=== PATIENT | male | born 1990 | race Hispanic/Latino ===

== ENCOUNTER 2017-06-27 00:16 | Observation (INO) | payer OTHER ==
[~2017-06-27] VITALS: Ht 167.6 cm; Wt 105.2 kg
[2017-06-27] MEDS ORDERED: SODIUM CHLORIDE 0.9% 1000ML 1,000 ML IV STA (00:34)
[2017-06-27 00:51] LABS: BASOPHILS # (AUTO) 0.1 (0.0-0.1); BASOPHILS % 0.6 % (0.0-1.0); EOSINOPHILS # (AUTO) 0.2 (0.0-0.4); EOSINOPHILS % 1.5 % (0.0-6.0); HEMATOCRIT 49.4 % (38.2-49.6); HEMOGLOBIN 16.7 g/dL (14.0-18.0); LYMPHOCYTES # (AUTO) 4.3 (1.0-3.2); MEAN CORPUSCULAR HEMOGLOBIN 25.8 pg (28-32); MEAN CORPUSCULAR HGB CONC 33.8 g/dL (31-35); MEAN CORPUSCULAR VOLUME 76.2 fL (81-99); MONOCYTES # (AUTO) 0.9 (0.2-0.8); MONOCYTES % 6.6 % (4.4-11.3); NEUTROPHILS # (AUTO) 7.9 (2.1-6.9); PLATELET COUNT 283 x10e3/uL (140-360); RED BLOOD COUNT 6.48 x10e6/uL (4.3-5.7); RED CELL DISTRIBUTION WIDTH 13.2 % (11.7-14.4)
--- NOTE | 2017-06-27 01:00 | Diagnostic Imaging Report ---
EXAMINATION: CHEST 2 VIEWS INDICATION: Chest pain. COMPARISON: None FINDINGS: TUBES and LINES: None. LUNGS: Lungs are not well inflated. Lungs are clear. There is no evidence of pneumonia or pulmonary edema. PLEURA: No pleural effusion or pneumothorax. HEART AND MEDIASTINUM: The cardiomediastinal silhouette is unremarkable. BONES AND SOFT TISSUES: No acute osseous lesion. Soft tissues are unremarkable. UPPER ABDOMEN: No free air under the diaphragm. IMPRESSION: No acute thoracic abnormality. Signed by: Dr. Fermín Morales M.D. on 06/27/2017 12:56 AM
[2017-06-27 01:01] LABS: INR 0.98; PROTHROMBIN TIME 12.2 seconds (11.9-14.5)
[2017-06-27 01:02] LABS: PARTIAL THROMBOPLASTIN TIME 31.4 seconds (23.8-35.5)
[2017-06-27 01:11] LABS: ALANINE AMINOTRANSFERASE 19 IU/L (0-55); ALBUMIN 3.9 g/dL (3.5-5.0); ALKALINE PHOSPHATASE 126 IU/L (40-150); ANION GAP 15.6 mmol/L (8-16); BLOOD UREA NITROGEN 19 mg/dL (7-26); BUN/CREATININE RATIO 17 (6-25); CALCIUM 9.1 mg/dL (8.4-10.2); CARBON DIOXIDE 24 mmol/L (22-29); CHLORIDE 102 mmol/L (98-107); CREATINE KINASE 186 IU/L (30-200); CREATININE, SERUM 1.14 mg/dL (0.72-1.25); EST GLOMERULAR FILTRATION RATE > 60 ML/MIN (60-); GLUCOSE 102 mg/dL (74-118); MAGNESIUM 2.4 MG/DL (1.3-2.1); POTASSIUM 3.6 mmol/L (3.5-5.1); SODIUM 138 mmol/L (136-145)
[2017-06-27 01:24] LABS: BILIRUBIN,URINE NEGATIVE (NEGATIVE); KETONES,URINE NEGATIVE (NEGATIVE); LEUKOCYTE ESTERASE ,URINE NEGATIVE (NEGATIVE); NITRITE,URINE NEGATIVE (NEGATIVE); PROTEIN,URINE DIPSTICK NEGATIVE (NEGATIVE); URINE UROBILINOGEN 4 mg/dL (0.2 - 1)
[2017-06-27 01:25] LABS: CLARITY,URINE CLEAR (CLEAR); COLOR,URINE YELLOW (YELLOW)
[2017-06-27 01:28] LABS: STREPTOCOCCUS GRP A ANTIGEN NEGATIVE (NEGATIVE)
[2017-06-27 01:30] LABS: AMPHETAMINES SCREEN,URINE NEGATIVE (NEGATIVE); BENZODIAZEPINES SCREEN,URINE NEGATIVE (NEGATIVE); PHENCYCLIDINE SCREEN,URINE NEGATIVE (NEGATIVE)
[2017-06-27 01:35] LABS: BACTERIA,URINE RARE /HPF; EPITHELIAL CELLS,URINE RARE /LPF; WBC,URINE (MAN) 0-5 /HPF (0-5)
[2017-06-27 01:44] LABS: INFLUENZAE A&B ANTIGEN (RAPID) NEGATIVE (NEGATIVE)
[2017-06-27] MEDS ORDERED: ONDANSETRON HCL INJ 2 MG/ML VIAL IV PRN (04:15)
--- OUTSIDE RECORDS SUMMARY | 2017-06-27 04:24 | XMS REPORT ---
[facility] Address Unknown Phone Unavailable Care Team Providers Care Car Coupler Name Role Phone LYDIA VASQUES Unavailable Unavailable Problems This patient has no known problems. Allergies, Adverse Reactions, Alerts This patient has no known allergies or adverse reactions. Medications This patient has no known medications. Results Test Description Test Time Test Comments Text Results Atomic Results Result Comments CHEST [address] [address] Patient Name: NAOMI HWANG III MR #: [id number] : 1990 Age/Sex: 27/M Req #: [id number] Adm Physician: Ordered by: LYDIA VASQUES MD Report #: [id number] Location: ER Room/Bed: Procedure: [id number] DX/CHEST 2 VIEWS Exam Date: 06/27/17 Exam Time : 0 REPORT STATUS: Signed EXAMINATION: CHEST 2 VIEWS INDICATION: Chest pain. COMPARISON: None FINDINGS: TUBES and LINES: None. LUNGS: Lungs are not well inflated. Lungs are clear. There is no evidence of pneumonia or pulmonary edema. PLEURA: No pleural effusion or pneumothorax. HEART AND MEDIASTINUM: The cardiomediastinal silhouette is unremarkable. BONES AND SOFT TISSUES: No acute osseous lesion. Soft tissues are unremarkable. UPPER ABDOMEN: No free air under the diaphragm. IMPRESSION: No acute thoracic abnormality. Signed by: Dr. Fermín Morales M.D. on 06/27/2017 12:56 AM Dictated By: FERMÍN MARS MD Transcribed By: JARAD on 06/27/1755 COPY TO: LYDIA VASQUES MD
[2017-06-27 07:38] LABS: CHOL/HDL RATIO 4.9 (3.9-4.7)
[2017-06-27 07:54] VITALS: BP 129/69
[2017-06-27 09:18] VITALS: BP 129/69
[2017-06-27 10:08] LABS: CREATINE KINASE 136 IU/L (30-200)
[2017-06-27 18:16] LABS: CREATINE KINASE 126 IU/L (30-200)
--- NOTE | 2017-06-27 18:20 | History and Physical ---
REASON FOR ADMISSION: Chest pain. HISTORY OF PRESENT ILLNESS: This is a 27-year-old man with a history of hyperlipidemia, who presents with complaints of chest pain. He reports he began having chest pressure/squeezing yesterday around 9:30 p.m. This was associated with diaphoresis, as well as lightheadedness. The pain did not radiate and was not associated with shortness of breath. It has been constant since onset with intermittent episodes of worsening and improvement. He has not noted any aggravating or alleviating factors. REVIEW OF SYSTEMS: Negative except as per HPI. PAST MEDICAL HISTORY: Hyperlipidemia. PAST SURGICAL HISTORY: Tonsillectomy. ALLERGIES: IBUPROFEN CAUSES STOMACH UPSET. MEDICATIONS: None. SOCIAL HISTORY: Denies tobacco or illicit drugs. He does drink alcohol occasionally. FAMILY HISTORY: Pertinent for father who had a myocardial infarction at the age of 50. PHYSICAL EXAMINATION VITALS: Temperature 97 degrees, pulse 67, respiratory rate 20, blood pressure 129/69, and oxygen saturation 100% on room air. GENERAL: A well-developed, well-nourished man obese in no acute distress. HEENT: Normocephalic and atraumatic. Pupils equal. No scleral icterus. NECK: Supple. No thyromegaly or cervical lymphadenopathy. No carotid bruits. LUNGS: Clear to auscultation bilaterally. No wheezes or crackles. CARDIOVASCULAR: Normal rate. Regular rhythm. No murmur. Normal S1 and S2. ABDOMEN: Soft and nontender. EXTREMITIES: No edema. NEURO: Nonfocal exam. LABS: WBC 13.39, hemoglobin 16.7, hematocrit 49.4, and platelets 283,000. Sodium 138, potassium 3.6, chloride 102, CO2 24, BUN 19, creatinine 1.14. Troponin less than 0.001. BNP less than 10. Cholesterol 204, LDL 146, HDL 42, triglycerides 82. EKG reviewed. IMPRESSION 1. Chest pain. 2. Hyperlipidemia. PLAN: Trend cardiac enzymes to rule out myocardial infarction. Obtain echocardiogram. EKG suggestive of early repolarization versus pericarditis. If the patient rules out for myocardial infarction, plan for exercise treadmill stress test for further evaluation. Discussed risk factor modification for the patient's hyperlipidemia, as well as obesity, specifically exercise, weight loss and heart-healthy diet. Job#: [id number]
== END 2017-06-27 18:48 | disposition home or self-care (01) ==
LOC: ER 00:16 → ERHOLD 04:21 → IMCU 07:06
PROVIDERS: ADMIT Internal Medicine Interventional Cardiology; ATTEND Internal Medicine Interventional Cardiology
DX: R07.2 Precordial pain (principal); E78.5 Hyperlipidemia, unspecified
CPT/HCPCS: 36415; 71046; 80053; 80061; 80307; 81001; 82550; 82553; 83518; 83735; 83880; 84484; 85025; 85379; 85610; 85730; 87070; 87086; 87400; 93005; 93306; 99284; G0378; J7030

== ENCOUNTER 2023-11-02 20:44 | Emergency (ER) | payer SELFPAY ==
[~2023-11-02] VITALS: Ht 167.6 cm; Wt 104.3 kg
[2023-11-02 21:22] VITALS: PULSE 93; RESP 20
[2023-11-02 22:12] LABS: ALANINE AMINOTRANSFERASE 55 IU/L (0-55); ALBUMIN 3.9 g/dL (3.5-5.0); ALBUMIN/GLOBULIN RATIO 1.1 (0.8-2.0); ALKALINE PHOSPHATASE 114 IU/L (40-150); ANION GAP 15.8 mmol/L (8-16); BILIRUBIN,TOTAL 0.3 mg/dL (0.2-1.2); BLOOD UREA NITROGEN 19 mg/dL (7-26); BUN/CREATININE RATIO 15 (6-25); CALCIUM 8.8 mg/dL (8.4-10.2); CARBON DIOXIDE 22 mmol/L (22-29); CHLORIDE 105 mmol/L (98-107); CREATINE KINASE 227 IU/L (30-200); CREATININE, SERUM 1.24 mg/dL (0.72-1.25); EST GLOMERULAR FILTRATION RATE 80 ML/MIN (>=60); GLUCOSE 107 mg/dL (74-118); POTASSIUM 3.8 mmol/L (3.5-5.1); SODIUM 139 mmol/L (136-145); TOTAL PROTEIN 7.4 g/dL (6.5-8.1)
[2023-11-02 22:19] LABS: TROPONIN I < 0.001 ng/mL (0-0.300)
[2023-11-02 23:09] LABS: BASOPHILS # (AUTO) 0.1 (0.0-0.1); BASOPHILS % 0.6 % (0.0-1.0); EOSINOPHILS # (AUTO) 0.7 (0.0-0.4); EOSINOPHILS % 6.3 % (0.0-6.0); HEMATOCRIT 47.3 % (38.2-49.6); HEMOGLOBIN 15.7 g/dL (14.0-18.0); LYMPHOCYTES # (AUTO) 2.9 (1.0-3.2); LYMPHOCYTES % 28.1 % (18.0-39.1); MEAN CORPUSCULAR HEMOGLOBIN 26.3 pg (28-32); MEAN CORPUSCULAR HGB CONC 33.2 g/dL (31-35); MEAN CORPUSCULAR VOLUME 79.4 fL (81-99); MONOCYTES # (AUTO) 0.8 (0.2-0.8); NEUTROPHILS # (AUTO) 5.9 (2.1-6.9); NEUTROPHILS % 56.8 % (38.7-80.0); PLATELET COUNT 267 x10e3/uL (140-360); RED BLOOD COUNT 5.96 x10e6/uL (4.3-5.7); RED CELL DISTRIBUTION WIDTH 13.7 % (11.7-14.4)
[2023-11-02 23:11] LABS: AMPHETAMINES SCREEN,URINE NEGATIVE (NEGATIVE); BENZODIAZEPINES SCREEN,URINE NEGATIVE (NEGATIVE); CANNABINOIDS SCREEN,URINE NEGATIVE (NEGATIVE); METHADONE SCREEN, URINE NEGATIVE (NEGATIVE); OPIATES SCREEN,URINE NEGATIVE (NEGATIVE); PHENCYCLIDINE SCREEN,URINE NEGATIVE (NEGATIVE)
[2023-11-02] MEDS ORDERED: IOPAMIDOL 370 MG/ML 100 ML INFUS..BTL INJ ONE (23:44)
[2023-11-02] MEDS ORDERED: FIORICET 50-301 EACH PO (23:48)
[2023-11-02 23:55] VITALS: TEMP 98.6
[2023-11-03 00:11] VITALS: BP 164/88; O2SAT 98
== END 2023-11-02 23:57 | disposition home or self-care (01) ==
LOC: ER 20:50
DX: R51.9 Headache, unspecified (principal); F14.10 Cocaine abuse, uncomplicated; E78.00 Pure hypercholesterolemia, unspecified
CPT/HCPCS: 36415; 70450; 70496; 80053; 80307; 82550; 84484; 85025; 93005; 99284; Q9967